=== PATIENT | male | born 1950 | race Caucasian/White ===

== ENCOUNTER 2018-12-19 13:59 | Emergency (ER) | payer OTHER ==
[2018-12-19] MEDS ORDERED: LEVALBUTEROL 1.25 MG/3 ML NEB ONE (16:06)
[2018-12-19 16:08] LABS: Absolute Lymphocytes (CBC) 2.1 K/uL (0.7-4.9); Absolute Monocytes 0.7 K/uL (0.1-1.3); Absolute Neutrophil 4.6 K/uL (1.8-8.0); Basophils % 0.8 % (0-1.3); Hematocrit 37.8 % (39.6-49.0); Lymphocytes % 27.4 % (15.3-44.8); MPV 7.7 fL (7.6-11.3); Monocytes % 9.3 % (3.3-12.3); RBC Red Blood Cell Count 4.04 M/uL (4.33-5.43)
[2018-12-19 16:26] LABS: ALT/SGPT 32 U/L (12-78); AST/SGOT 25 U/L (15-37); Albumin 3.2 g/dL (3.4-5.0); Alkaline Phosphatase 130 U/L (45-117); BUN Blood Urea Nitrogen 10 mg/dL (7-18); Bicarbonate 26 mmol/L (21-32); Bilirubin Total 0.4 mg/dL (0.2-1.0); Glucose Level 127 mg/dL (74-106); Potassium 3.8 mmol/L (3.5-5.1); Protein, Total 7.7 g/dL (6.4-8.2); Sodium Level 141 mmol/L (136-145)
--- NOTE | 2018-12-19 16:35 | RAD REPORT ---
EXAM DESCRIPTION: RAD - Chest Pa And Lat (2 Views) - 12/19/2018 4:10 pm CLINICAL HISTORY: Cough and congestion, fever COMPARISON: 2011 TECHNIQUE: PA and lateral views of the chest were obtained. FINDINGS: The lungs are fibrotic as a baseline. This pattern has progressed since 2010. Small focal parenchymal opacification seen lower right lung field and in the left perihilar in midlung field mitchell on. These are most likely areas of acute pneumonia given the acute clinical presentation. Asymmetric fibrotic progression would be less likely. Heart size is normal and central vasculature is within n ormal limits. No pleural effusion or pneumothorax seen. No acute bony finding noted. No aortic abn ormality. IMPRESSION: Acute interstitial pneumonia changes in the left midlung field and lower right lung earl boyer Interstitial fibrotic pattern progressive from 2011.
--- NOTE | 2018-12-19 16:49 | ER ---
Nurse's Notes [facility] Name: Stephon Dan Age: 68 yrs Sex: Male : 1950 Arrival Date: 12/19/2018 Time: 14:02 Bed 5 Private MD: Diagnosis: Community Acquired Pneumonia Presentation: 12/19 15:15 Presenting complaint: Patient states: Cough and chest congestion for several days, sg worsening today, concerned that maybe its a CHF/COPD issue, not really sure. pt denies N/V/D/Fever at home, reports cough is non productive but feels like chest congestion. Transition of care: patient was not received from another setting of care. Onset of symptoms was December 19, 2018. Risk Assessment: Do you want to hurt yourself or someone else? Patient reports no desire to harm self or others. Initial Sepsis Screen: Does the patient meet any 2 criteria? No. Patient's initial sepsis screen is negative. Does the patient have a suspected source of infection? No. Patient's initial sepsis screen is negative. Care prior to arrival: None. 15:15 Method Of Arrival: Ambulatory sg 15:15 Acuity: LALITO 3 sg Historical: - Allergies: 15:43 No Known Allergies; sv - PMHx: 15:43 None; sv - Immunization history:: Adult Immunizations up to date. - Ebola Screening: : No symptoms or risks identified at this time. Screenin:43 Abuse screen: Denies threats or abuse. Denies injuries from another. Nutritional sv screening: No deficits noted. Tuberculosis screening: No symptoms or risk factors identified. Fall Risk None identified. Assessment: 15:41 General: Appears in no apparent distress. comfortable, well developed, Behavior is sv calm, cooperative, appropriate for age. Pain: Denies pain. Neuro: Level of Consciousness is awake, alert, obeys commands, Oriented to person, place, time, situation, Moves all extremities. Full function Gait is steady, Speech is normal. Cardiovascular: Heart tones S1 S2 present Patient's skin is warm and dry. Pulses are 3+ in right radial artery and left radial artery. Respiratory: Reports cough that is productive, persistent green sputum pain with cough Airway is patent Respiratory effort is even, unlabored, Respiratory pattern is regular, symmetrical, Breath sounds with wheezes bilaterally. Derm: Skin with poor turgor Skin is normal. 16:25 Reassessment: Patient appears in no apparent distress at this time. No changes from sv previously documented assessment. Patient and/or family updated on plan of care and expected duration. Pain level reassessed. Patient is alert, oriented x 3, equal unlabored respirations, skin warm/dry/pink. 17:12 Reassessment: Patient appears in no apparent distress at this time. Patient and/or sv family updated on plan of care and expected duration. Pain level reassessed. Patient is alert, oriented x 3, equal unlabored respirations, skin warm/dry/pink. Patient states feeling better. Patient states symptoms have improved. Vital Signs: 15:41 BP 146 / 70; Pulse 69; Resp 18; Temp 98.1; Pulse Ox 98% ; sv 17:00 BP 138 / 70; Pulse 70; Resp 18; Pulse Ox 99% ; sv ED Course: 14:02 Patient arrived in ED. as 14:50 Patient's name was called from ER lobby. No response. sg 15:00 Patient's name was called from ER lobby. No response. sg 15:23 Triage completed. sg 15:35 Alfredo Guillory PA is PHCP. jmm 15:35 Isauro Florence MD is Attending Physician. jmm 15:36 Luz Elena Sears RN is Primary Nurse. sv 15:43 Patient has correct armband on for positive identification. Placed in gown. Bed in low sv position. Call light in reach. Pulse ox on. NIBP on. Door closed. Head of bed elevated. 15:44 Nurse Practitioner and/or Physician Print Binding Worker to see patient. sv 15:44 Arm band placed on. sv 15:55 Initial lab(s) drawn, by ca, sent to lab. Flu and/or RSV swab sent to lab. Inserted sv saline lock: 20 gauge in right antecubital area, using aseptic technique. Blood collected. Flushed right antecubital with 5 ml normal saline. 16:03 Patient moved to radiology via wheelchair. sv 16:10 Chest Pa And Lat (2 Views) XRAY In Process Unspecified. EDMS 17:12 No provider procedures requiring assistance completed. IV discontinued, intact, sv bleeding controlled, No redness/swelling at site. Pressure dressing applied. Administered Medications: 16:25 Drug: Xopenex (3) 1.25 mg Route: Inhalation; sv Outcome: 16:49 Discharge ordered by MD. brunson 17:12 Discharged to home ambulatory. sv 17:12 Condition: stable 17:12 Condition: improved 17:12 Discharge instructions given to patient, Instructed on discharge instructions, follow up and referral plans. medication usage, Demonstrated understanding of instructions, follow-up care, medications, Prescriptions given X 2. 17:12 Patient left the ED. sv Signatures: Dispatcher [employer] EDLuz Elena Antonio RN RN sv Gay, Steven, RN RN sg Mickail, Joel, PA PA jmm Martinez, Amelia as
--- NOTE | 2018-12-19 16:50 | EDPHYS ---
Physician Documentation [facility] Name: Stephon Dan Age: 68 yrs Sex: Male : 1950 Arrival Date: 12/19/2018 Time: 14:02 Bed 5 Private MD: ED Physician Isauro Florence HPI: 12/19 15:51 This 68 yrs old Male presents to ER via Ambulatory with complaints of Cough, jmm Congestion. 15:51 The patient or guardian reports cough. Onset: The symptoms/episode began/occurred jmm gradually, 3 week(s) ago. Modifying factors: The symptoms are alleviated by nothing, the symptoms are aggravated by nothing. Associated signs and symptoms: Pertinent positives: fever. This is a 68 year old male that denies chronic medical conditions that presents to the ED with complaints of productive cough for 3 weeks worsening over the past 2 days. Patient states he has developed fever over the past 2 days. . Historical: - Allergies: 15:43 No Known Allergies; sv - PMHx: 15:43 None; sv - Immunization history:: Adult Immunizations up to date. - Ebola Screening: : No symptoms or risks identified at this time. ROS: 15:51 Abdomen/GI: Negative for abdominal pain, nausea, vomiting, diarrhea, and constipation. jmm 15:51 Constitutional: Positive for fever. 15:51 Respiratory: Positive for cough, with green sputum. 15:51 All other systems are negative. Exam: 15:51 Constitutional: This is a well developed, well nourished patient who is awake, alert, jmm and in no acute distress. Head/Face: atraumatic. Eyes: EOMI, no conjunctival erythema appreciated ENT: Moist Mucus Membranes Neck: Trachea midline, Supple Chest/axilla: Normal chest wall appearance and motion. Cardiovascular: Regular rate and rhythm. No edema appreciated 15:51 Abdomen/GI: Non distended, soft Back: Normal ROM Skin: General appearance color normal MS/ Extremity: Moves all extremities, no obvious deformities appreciated, no edema noted to the lower extremities Neuro: Awake and alert, normal gait Psych: Behavior is normal, Mood is normal, Patient is cooperative and pleasant 15:51 Respiratory: the patient does not display signs of respiratory distress, Respirations: normal, Breath sounds: wheezing: that is mild, is heard in the left posterior lower lobe and right posterior lower lobe. Vital Signs: 15:41 BP 146 / 70; Pulse 69; Resp 18; Temp 98.1; Pulse Ox 98% ; sv 17:00 BP 138 / 70; Pulse 70; Resp 18; Pulse Ox 99% ; sv [facility]: 15:43 Patient medically screened. [facility] 16:46 Data reviewed: vital signs, nurses notes. Counseling: I had a detailed discussion with boy the patient and/or guardian regarding: the historical points, exam findings, and any diagnostic results supporting the discharge/admit diagnosis, lab results, radiology results, the need for outpatient follow up, to return to the emergency department if symptoms worsen or persist or if there are any questions or concerns that arise at home. ED course: Patient is alert and non toxic in appearance. No signs of resp distress. Patient will be prescribed antibiotics and given strict return precautions. Patient understood and agrees with the plan of care. . 12/19 15:46 Order name: CBC with Diff; Complete Time: 16:18 [facility] 12/19 15:46 Order name: CMP; Complete Time: 16:32 [facility] 12/19 15:46 Order name: Chest Pa And Lat (2 Views) XRAY; Complete Time: 16:37 [facility] 12/19 15:46 Order name: Flu; Complete Time: 16:32 [facility] 12/19 15:46 Order name: Procalcitonin; Complete Time: 16:52 [facility] 12/19 15:46 Order name: Saline Lock; Complete Time: 16:03 [facility] Administered Medications: 16:25 Drug: Xopenex (3) 1.25 mg Route: Inhalation; sv Disposition: 12/20 07:46 Co-signature as Attending Physician, Isauro Florence MD I agree with the assessment and [facility] plan of care. Disposition: 12/19/18 16:49 Discharged to Home. Impression: Community Acquired Pneumonia. - Condition is Stable. - Discharge Instructions: Community-Acquired Pneumonia, Adult. - Prescriptions for Zithromax Z- Talon 250 mg Oral Tablet - take 1 tablet by ORAL route as directed for 5 days Day 1 - take two (2) tablets one time. Day 2, 3, 4 , 5 take one (1) tablet once daily.; 6 tablet. Albuterol Sulfate 90 mcg/actuation - inhale 1-2 puff by INHALATION route every 4-6 hours; 1 Inhaler. - Medication Reconciliation Form, Thank You Letter, Antibiotic Education, Prescription Opioid Use form. - Follow up: Private Physician; When: 2 - 3 days; Reason: Recheck today's complaints, Continuance of care, Re-evaluation by your physician. Signatures: Dispatcher [employer] Luz Elena Sahu, Isauro Hooker RN, MD MD cha Mickail, Joel, PA PA jmm Corrections: (The following items were deleted from the chart) 12/19 17:12 16:49 12/19/2018 16:49 Discharged to Home. Impression: Community Acquired Pneumonia. sv Condition is Stable. Forms are Medication Reconciliation Form, Thank You Letter, Antibiotic Education, Prescription Opioid Use. Follow up: Private Physician; When: 2 - 3 days; Reason: Recheck today's complaints, Continuance of care, Re-evaluation by your physician. boy
== END 2018-12-19 17:12 | disposition home or self-care (01) ==
LOC: ER 13:59
DX: J18.8 Other pneumonia, unspecified organism (principal)
CPT/HCPCS: 36415; 71046; 80053; 84145; 85025; 87804; 99284